=== PATIENT | male | born 1950 | race American Indian/Alaskan Native ===

== ENCOUNTER 2017-01-27 06:48 | Day surgery (SDC) | payer MEDICARE ==
[2017-01-27] MEDS ORDERED: ECOTRIN PO ONE (07:10)
[2017-01-27 07:57] LABS: Anion Gap 15 mmol/L; BUN/Creatinine Ratio 11.66; Blood Urea Nitrogen 14 mg/dL (9-20); Calcium 9.3 mg/dL (8.4-10.2); Carbon Dioxide 27 mmol/L (22-30); Chloride 105.4 mmol/L (98-107); Glucose 93 mg/dL (75-100); Potassium 4.3 mmol/L (3.6-5.0); Sodium 143 mmol/L (137-145)
[2017-01-27] MEDS ORDERED: NACL 0.9% 500 ML 500 ML IV SCH (08:00)
[2017-01-27] MEDS ORDERED: HEPARIN/NS 5000 UNIT/500ML(CATH LAB) 1,000 ML IR ONE (08:12)
[2017-01-27] MEDS ORDERED: CALAN ONE (08:13)
[2017-01-27] MEDS ORDERED: NITROGLYCERIN SYRINGE 3 ML ONE (08:13)
[2017-01-27] MEDS ORDERED: HEPARIN 10,000 UNITS/10 ML ONE (08:13)
[2017-01-27] MEDS ORDERED: XYLOCAINE 2% INFILTRATI ONE (08:13)
[2017-01-27] MEDS ORDERED: SUBLIMAZE ONE (08:14)
[2017-01-27] MEDS ORDERED: VERSED ONE (08:14)
[2017-01-27 08:28] LABS: Eosinophils % (Auto) TNR % (0.0-4.3)
[2017-01-27 08:48] LABS: Basophils % (Auto) TNR % (0.0-1.8); Diff Status TNR; Hematocrit TNR % (35.5-45.6); Hemoglobin TNR gm/dl (11.8-15.2); Mean Corpuscular HGB Conc TNR % (32-34); Mean Corpuscular Hemoglobin TNR pg (28-32); Mean Corpuscular Volume TNR fl (84-94); Platelet Count TNR K/mm3 (140-440); Red Blood Count TNR M/mm3 (3.65-5.03); Red Cell Distribution Width TNR % (13.2-15.2); White Blood Count TNR K/mm3 (4.5-11.0)
[2017-01-27] MEDS ORDERED: APRESOLINE ONE (09:04)
--- NOTE | 2017-01-27 10:02 | Cardiac Catherization Report ---
CARDIAC CATHETERIZATION REFERRING PHYSICIAN: Guanakito Delarosa M.D. INDICATION FOR PROCEDURE: The patient is a pleasant 66-year-old -[place] gentleman with multiple risk factors including hypertension, aortic valve sclerosis, dyspnea on exertion and abnormal stress test, referred here for left heart catheterization. Risks, benefits and alternatives discussed at length prior to obtaining informed consent. PROCEDURE IN DETAIL: The patient was brought to the phlebotomist medical lab assistant in a postabsorptive state, prepped and draped in sterile fashion. Hermes's test in right hand was normal. A 2 mL of 2% lidocaine used to anesthetize the right wrist. A standard 6-Azeri hydrophilic sheath used to cannulate the right radial artery via modified Seldinger technique. All exchanges performed to exchange the J-tip guidewire. JL3.5 catheter used to engage left main. No dampening or ventricularization. Cineangiography performed in all projections. JR4 catheter used to cross the aortic valve under fluoroscopic guidance. Left ventriculography performed in 30 KENNEY and 30 SAMOAN projections via hand injections, catheter flushed. Manual pullback performed with continuous pressure monitoring. Catheter used to engage the right coronary. No dampening or ventricularization. Cineangiography performed in all projections. Given significant hypertension and chest pain, we decided to perform a root aortography that was performed with a pigtail catheter and power injector in the SAMOAN projection. Next, catheter removed from the body of wire, sheath removed. Manual pressure used to achieve hemostasis. DATA: Aortic pressure is 160/60, LV pressure is 160, LVEDP of 25 mmHg. Left revealed normal systolic performance with estimated ejection fraction of 50-55%. No evidence of aortic stenosis, mildly elevated LVEDP. CORONARY ANATOMY: This is a right dominant system. Right coronary is a moderate sized vessel, courses AV groove, distally bifurcates in the posterior descending and posterolateral branches, 25% mid RCA stenosis. No obstructive disease identified. Left main is short. No significant disease, bifurcates left anterior descending and left circumflex. Left circumflex is a moderate sized vessel, courses AV groove. No significant disease identified. Scattered luminal irregularities throughout. LAD is a moderate sized vessel, courses anterior intergroove, wraps around the apex, scattered luminal irregularities, but no obstructive disease in the LAD or diagonal system, which are rather small for an adult gentleman. SUZIE 3 flow throughout. Root aortography is a type III arch calcified. No evidence of AI. No evidence of aortic dissection or penetrating aortic ulcer. CONCLUSIONS: 1. No angiographic evidence of significant obstructive epicardial coronary disease in this right dominant system and a 25% mid right coronary stenosis. 2. Normal left ventricular systolic performance, estimated ejection fraction of 50-55%. 3. No evidence of aortic stenosis. 4. A root aortography reveals a type II arch without evidence of dissection, penetrating aortic ulcer, or aortic insufficiency and normal caliber. 5. Mildly elevated LVEDP. 6. Systemic arterial hypertension. These findings are consistent with hypertensive heart disease. Aggressive blood pressure control is recommended. Salt reduction, primary and secondary prevention measures. Results of the procedure explained to the patient and referring physician. All questions and concerns were addressed. JOB# [id number] RAMBO/LUKAS
[2017-01-27 12:25] VITALS: BP 148/61
--- NOTE | 2017-01-27 16:49 | Short Stay Summary ---
Short Stay Documentation Date of service: 01/27/17 - History H&P: obtained from office - Allergies and Medications Current Medications: Allergies No Known Allergies Allergy (Verified 01/27/17 07:10) - Brief post op/procedure progress note Date of procedure: 01/27/17 Procedure: LHC - Hospital course Hospital course: The patient is a 66-year-old male with a past medical history significant for hypertension, aortic valve sclerosis, dyspnea on exertion and abnormal stress test. He presented today for a scheduled elective left heart catheterization. He underwent LHC via right radial artery per Dr. El Smith, which revealed no angiographic evidence of significant obstructive epicardial coronary disease, EF 50-55%. He remained clinically and hemodynamically stable throughout the procedure and his recovery and was discharged home in stable condition. - Disposition Condition at discharge: Good Disposition: DISCHARGED TO HOME OR SELFCARE Short Stay Discharge Plan Forms: [facility] PCI D/C Instructions
== END 2017-01-27 13:40 | disposition home or self-care (01) ==
LOC: OPU 06:48
PROVIDERS: ATTEND Internal Medicine
DX: I25.10 Atherosclerotic heart disease of native coronary artery without angina pectoris (principal); I10 Essential (primary) hypertension; F17.210 Nicotine dependence, cigarettes, uncomplicated; Z72.89 Other problems related to lifestyle; Z79.899 Other long term (current) drug therapy
CPT/HCPCS: 36415; 80048; 85025; 93005; 93010; 93458; 93567; C1894; J0360; J1644; J2250; J3010; J7040; Q9967